=== PATIENT | female | born 1995 | race Caucasian/White ===

== ENCOUNTER 2018-05-14 10:16 | Emergency (ER) | payer OTHER ==
--- NOTE | 2018-05-14 10:26 | PDOC ---
Attending Attestation - Resident Resident Name: Viviana Mulligan - ED Attending Attestation I have performed the following: I have examined & evaluated the patient, The case was reviewed & discussed with the resident, I agree w/resident's findings & plan, Exceptions are as noted
[2018-05-14 10:32] VITALS: BP 108/71; PULSE 82; TEMP 98.7; BMI 19.3
--- NOTE | 2018-05-14 11:13 | PDOC ---
History of Present Illness - General Chief Complaint: Head/Neck problem Stated Complaint: HIT ON HEAD Time Seen by Provider: 05/14/18 11:10 - History of Present Illness Initial Comments: 05/14/18 11:44 Chief complaint: Head injury History of present illness: Patient struck in the right parietal scalp with a curtain sedrick this morning that fell from above the window. No loss of consciousness. However, she subsequently felt mild nausea periods all symptoms have now resolved. No visual or focal neurologic symptoms or unsteadiness of gait Review of systems: As above, otherwise negative Past medical history: Healthy female, no significant medical or surgical problems Social/family history: Lives with family, denies drugs or alcohol or tobacco, otherwise noncontributory Physical exam: Alert and oriented 3, well-developed well-nourished, no acute distress, cheerful and cooperative Afebrile, vital signs normal Head atraumatic. There is no sign of a bruise, contusion, hematoma, abrasion, laceration PERRLA, 4 mm, fundi benign with sharp disc margins and good central venous pulsations. EOMs full without diplopia. Corneas and anterior chambers clear Neck supple without bruit mass or nodes. No tenderness or deformity, good range of motion without pain Chest clear. No chest wall or rib cage tenderness or deformity CV regular without murmur rub or gallop Abdomen benign Neurological C2 to 12 intact. Strength full and symmetric. No focal sensory or motor deficits. Gait stable and unimpaired Impression: Minor head injury. No sign of significant intracranial trauma Plan: Head injury instructions. Observation by the family. Return to ER if there are any further symptoms. Otherwise follow-up primary physician. Past History - Past Medical History Allergies/Adverse Reactions: Allergies Allergy/AdvReac Type Severity Reaction Status Date / Time No Known Allergies Allergy Verified 05/14/18 10:22 Home Medications: Ambulatory Orders NK [No Known Home Medication] 05/14/18 COPD: No - Suicide/Smoking/Psychosocial Hx Smoking History: Never smoked *Physical Exam - Vital Signs Last Vital Signs Temp Pulse Resp BP Pulse Ox 98.7 F 82 18 108/71 100 05/14/18 10:18 05/14/18 10:18 05/14/18 10:18 05/14/18 10:18 05/14/18 10:18 *DC/Admit/Observation/Transfer Diagnosis at time of Disposition: Head injury Qualifiers: Encounter type: initial encounter Qualified Code(s): S09.90XA - Unspecified injury of head, initial encounter - Discharge Dispostion Disposition: HOME Condition at time of disposition: Stable Decision to Admit order: No - Referrals - Patient Instructions Printed Discharge Instructions: DI for Closed Head Injury Additional Instructions: Light diet 24 hours. Avoid excessive visual stimulation. Return to ER if there are any further symptoms. - Post Discharge Activity
== END 2018-05-14 11:17 | disposition home or self-care (01) ==
LOC: FER 10:16
DX: S09.90XA Unspecified injury of head, initial encounter (principal); W20.8XXA Other cause of strike by thrown, projected or falling object, initial encounter; Y93.89 Activity, other specified; Y92.9 Unspecified place or not applicable
CPT/HCPCS: 99282-25